=== PATIENT | female | born 1960 | race Caucasian/White ===

== ENCOUNTER → 2023-06-01 14:19 | Outpatient (REF) | payer BC, SELFPAY | LOC: WDC 14:19 | PROVIDERS: ATTENDING PHYSICIAN Obstetrics & Gynecology; FAMILY PHYSICIAN Physician Assistant Medical | DX: Z12.31 Encounter for screening mammogram for malignant neoplasm of breast (principal) | CPT/HCPCS: 77063; 77067 ==

== ENCOUNTER 2023-07-28 14:17 | Inpatient (IN) | payer BC, SELFPAY ==
[2023-07-28 11:29] VITALS: BP 155/88
[2023-07-28 11:58] VITALS: BMI 22.1
[2023-07-28 12:10] LABS: % Basophils 1.6 % (0-2); % Eosinophils 9.9 % (0-6); % Immature Granulocytes 0.2 % (0-0.5); % Lymphocytes 23.3 % (20.5-51.1); % Monocytes 8.7 % (1.7-9.3); % Neutrophils 56.3 % (42.2-75.2); Absolute Basophils 0.1 10^3/uL (0-0.2); Absolute Eosinophils 0.8 10^3/uL (0-0.7); Absolute Lymphocytes 1.9 10^3/uL (1.2-3.4); Absolute Monocytes 0.7 10^3/uL (0.1-0.6); Absolute Neutrophils 4.6 10^3/uL (1.4-6.5); Hematocrit 44.7 % (37.0-47.0); Hemoglobin 14.9 g/dL (12.0-16.0); Mean Corp Hgb Conc. 33.3 g/dL (33.0-37.0); Mean Corpuscular Volume 89.9 fL (81.0-99.0); Mean Platelet Volume 10.1 fL (7.4-10.4); Nucleated Red Blood Cells % 0 %; Platelet Count 281 10^3/uL (130-400); Red Blood Cell Count 4.97 10^6/uL (4.20-5.40); Red Cell Dist. Width 13.7 % (11.5-14.5); White Blood Cell Count 8.3 10^3/uL (4.8-10.8)
--- NOTE | 2023-07-28 12:16 | ED.GENMED ---
History of Present Illness
General
Chief Complaint: Breathing Problem
Time Seen by Provider: 07/28/23 12:08
Travel History
Have you had any contact with someone who has COVID-19?: No
Do you have any symptoms of coronavirus? Fever > 100 degrees, chills, cough, shortness of breath, sore throat, loss of taste or smell, muscle aches, or headache?: Yes
Symptoms:: SOB, cough
History of Present Illness
History of Present Illness:
62-year-old female with history of asthma presents to the emergency department for evaluation of persistent shortness of breath and wheezing for the past 10 days. Saw her scada technician (Dr Parker) today and was referred to the emergency department
due to hypoxia. She denies any fevers, night sweats. Does have some productive mucus with coughing. No chest pain. Profoundly short of breath with any degree of exertion. No leg swelling. No recent illnesses and no ill contacts at home.
Past History
Past History
ED Past Medical History: None
ED Past Surgical History: None
Social History
Tobacco: Non-smoker
Alcohol: None
Drug: None
Living: with family
Review of Systems
Review of Systems
Allergies reviewed?: Yes
All Other Systems: ROS reviewed and negative except as documented in HPI and ROS
Phy Exam
Physical Exam
Physical Exam:
GEN: Well appearing, NAD, WDWN
Eyes: PERRLA, EOMs intact, no scleral icterus
HENT: NCAT, oral mucosa moist
Lungs: Tachypnea, coarse expiratory wheezes and rhonchi in all rasheed with prolonged expiratory phase
Cardiac: RRR, no M/R/G, no peripheral edema. Radial pulses 2+ bilat
Neuro: AO x 3
MSK: No gross deformity or ecchymosis. No edema. No digital clubbing
Skin: No rashes, petechiae. Normal color, no pallor or jaundice.
Psych: Calm, cooperative, proper hygiene
Scores
Heart Failure Risk
Heart Failure Risk Score: Not Applicable
Course
Orders/Labs/Results
Orders:
Orders
07/28/23 Breakfast
Regular
At Your Request: Full Participation
07/28/23 12:02
Complete Blood Count/With Diff Urgent
Comprehensive Metabolic Panel Urgent
07/28/23 12:17
Albuterol Sulfate [Ventolin Nebules] 10 mg INH R NOW STA
Ipratropium Nebs [Atrovent Nebules] 1 mg INH R NOW STA
MethylPREDNISolone PF [Solu-Medrol Pf] 60 mg IV NOW STA
CR Chest - 2 Views Urgent
Comment:
Reason For Exam: SOB
07/28/23 14:00
Admit/Transfer Patient As Directed
Co-Sign Provider:
Level of Care: Inpatient admission
Assign to:: Telemetry
Physician / Group: nick alfred
Diagnosis: acute hypoxic respiratory failure
Reason for Telemetry: Other
Other Reason for Telemetry: acute hypoxia
Date to Stop Telemetry: 07/30/23
Time to Stop Telemetry: 11:00
Reason for Hospitalization: acute hypoxia
Expected length of stay greater than two midnights?: Yes
ELOS- Estimated Length of Stay in days: 3
I certify the patient meets the requirements for IP care: Yes
07/28/23 14:01
Code Status As Directed
Resuscitation Status: Full Code
07/28/23 15:28
COVID-19 Antigen Stat
Source: Nasal Swab
07/28/23 17:48
Acetaminophen [Tylenol] 650 mg PO Q4HPRN PRN
Ipratropium/Albuterol Sulfate [Duoneb] 3 ml INH R Q4HPRN PRN
Ipratropium/Albuterol Sulfate [Duoneb] 3 ml INH R QID
07/28/23 17:48
PULMONARY CONSULT Routine
Consulting Provider: Reilly Rosa
Was physician already notified: Yes
Respiratory Culture/Gram Stain Routine
ACOSTA Source: Sputum
Specimen Description:
Activity As Directed
Activity Level: As Tolerated
Intake/ Output As Directed
Frequency: Per unit guidelines
Vital Signs As Directed
Frequency: Per unit guidelines
Copd Education [RESP] Routine
O2 Therapy [RESP] Routine
Titrate/Wean O2 to maintain O2 sat greater than (%): 92
Special Instructions: adjust, if necessary, to avoid hyperoxia in CO2 retainers.
Use High Flow O2 if necessary
DX Deep Vein Thrombosis Video Routine
07/28/23 17:55
Artificial Tears (Pf) [Refresh Eye Drops (Pf)] 1 drops BOTH EYES QIDPRN PRN
07/28/23 18:00
Dexamethasone Sod Phosphate [Decadron] 4 mg IV Q6H
Enoxaparin Sodium [Lovenox] 40 mg SC QPM
Montelukast Sodium [Singulair] 10 mg PO QPM
07/28/23 20:00
Guaifenesin [Mucinex] 600 mg PO Q12
07/29/23 06:00
Basic Metabolic Panel IN AM
Complete Blood Count/With Diff IN AM
07/29/23 08:00
Famotidine [Pepcid] 20 mg PO DAILY
07/30/23 06:00
Basic Metabolic Panel IN AM
Complete Blood Count/With Diff IN AM
07/31/23 06:00
Basic Metabolic Panel IN AM
Complete Blood Count/With Diff IN AM
08/01/23 06:00
Basic Metabolic Panel IN AM
Complete Blood Count/With Diff IN AM
08/02/23 06:00
Basic Metabolic Panel IN AM
Complete Blood Count/With Diff IN AM
Abnormal Lab Results
07/28/23
12:02
Absolute Monos (auto) 0.7 H 10^3/uL
(0.1-0.6)
Absolute Eos (auto) 0.8 H 10^3/uL
(0-0.7)
Eosinophils % 9.9 H %
(0-6)
Glucose 102 H mg/dl
(70-99)
Alkaline Phosphatase 127 H U/L
(38-126)
07/28/23 12:02
07/28/23 12:02
Vital Signs
Initial and Last Documented VS:
Initial Vital Signs
Temp Pulse Resp BP Pulse Ox
98.3 F 98 20 155/88 89
07/28/23 11:29 07/28/23 11:29 07/28/23 11:29 07/28/23 11:29 07/28/23 11:29
Last Documented Vital Signs
Temp Pulse Resp BP Pulse Ox
98.6 F 100 18 120/76 93
07/28/23 17:55 07/28/23 17:55 07/28/23 17:55 07/28/23 17:55 07/28/23 18:15
MDM/Problems Addressed
MDM/Problems Addressed:
Patient's work of breathing and wheezing improved after hour-long neb however hypoxia remains. No evidence of infiltrate on chest x-ray and labs are reassuring. She has no fevers or chills worrisome for infectious etiology. Will admit to the
hospitalist service for further IV steroids and neb treatments
*Critical Care Note
Total Time (30-74mins, 75-104mins- exclusive of procedures): Not Applicable
ED Attending Note
-
Portions of this chart may have been created with voice recognition software.� Occasional wrong word or��sound alike� substitutions may have occurred due to the inherent limitations of voice recognition software.
Discharge Plan
Departure
Patient Disposition: Admit
Date of Disposition: 07/28/23
Time of Disposition: 13:43
Presentation/result/management discussed w/ accepting MD/DO: Hospitalist
Discharge Problem:
Asthma exacerbation, Acute hypoxemic respiratory failure
Interventions
Interventions:
*Risk Screen - Suicide Last Done: 07/28/23 11:58
*General Assessment Last Done: 07/28/23 11:29
*Neglect/Abuse Screening Last Done: 07/28/23 17:00
ED- Fall Risk Assessment Last Done: 07/28/23 11:59
*ED COVID-19 Vaccine History Last Done: 07/28/23 11:29
*Nursing Disposition Last Done: 07/28/23 18:15
ED- Cardiac Assessment Last Done: 07/28/23 11:59
ED- Pulmonary Assessment Last Done: 07/28/23 16:35
Discharge Date and Time
Discharge Date/Time: 07/28/23 18:40
[2023-07-28] MEDS: SOLU-MEDROL PF 60 MG IV (12:29)
[2023-07-28] MEDS: VENTOLIN NEBULES 10 MG INH (12:34)
[2023-07-28] MEDS: ATROVENT NEBULES 1 MG INH (12:34)
[2023-07-28 12:36] LABS: ALT (SGPT) 27 U/L (0-35); AST (SGOT) 30 U/L (14-36); Albumin 4.6 g/dl (3.5-5.0); Alkaline Phosphatase 127 U/L (38-126); Blood Urea Nitrogen 15 mg/dl (7-17); Calcium 9.5 mg/dl (8.4-10.2); Carbon Dioxide 24 mmol/L (22-30); Chloride 105 mmol/L (98-107); Estimated Creatinine Clearance 97 ml/min; Glucose 102 mg/dl (70-99); Potassium 4.5 mmol/L (3.5-5.1); Sodium 139 mmol/L (135-145); Total Bilirubin 0.8 mg/dl (0.2-1.3); Total Protein 7.6 g/dl (6.3-8.2); eGFR > 60.00
--- NOTE | 2023-07-28 13:45 | HPS.HSE ---
Family Physician
-
Family Physician: Ap Fofana PA-C
Chief Complaint
-
Short of breath, wheezing
History of Present Illness
62-year-old female with history of asthma presents to the emergency department for evaluation of persistent shortness of breath and wheezing for the past 10 days. Patient stated worsening short of breath with activity. She has cough with white
sputum. Patient also stated runny nose and congestion for past 6 weeks .she was treated with antibiotics for ear infection 6 weeks ago .patient denied any fever chills chest pain .patient denied any headache dizziness, syncopal episode .patient
denied abdominal pain, nausea, vomiting, diarrhea. Patient denied dysuria hematuria .patient was using nebulizer treatment with no relief in her symptoms .saw her automatic fancy machine operator (Dr Parker) today and was referred to the emergency department due to
hypoxia.
On arrival patient was hypoxic 80s to 90s on room air. Patient requiring 2 L of oxygen. Patient also received nebulizer, steroids in ER. Admitting for further management
Medical History
Past Medical History
Past Medical History: Reports Other
Additional Past Medical History:
GERD
IBS
Asthma
Laryngeal pharyngeal reflux
Past Surgical History: Reports Other
Additional Past Surgical History:
Spinal fusion
Sinus surgery
Social History
Tobacco: Non-smoker
Alcohol: Occasional
Drug: None
Personal:
Living: With Family
Employment: Employed
Family History
Family History: Not pertinent
Allergies / Home Medications
Allergies reflects when Allergies were last updated in [employer] [place].
Home Medications with original date entered in [employer] [place]
Allergy/Medication List:
Allergies
Allergy/AdvReac Type Severity Reaction Status Date / Time
Penicillins Allergy Rash Verified 07/28/23 11:32
Sulfa (Sulfonamide Allergy Rash Verified 07/28/23 11:32
Antibiotics)
SEASONAL Allergy CONGESTION, Uncoded 07/28/23 11:32
sneezing,
coughing
Home Medications
albuterol sulfate 2.5 mg/3 mL (0.083 %) solution for nebulization 2.5 mg (3 mL) inhalation R Q4HPRN PRN wheezing, cough ##60 04/12/21
budesonide 0.5 mg/2 mL suspension for nebulization 0.5 mg inhalation BID Lung/Breathing Issues 07/28/23
cetirizine 10 mg tablet (Zyrtec) 10 mg PO DAILY PRN ALLERGIES 07/28/23
dextran 70-hypromellose eye drops in a dropperette (Artificial Tears (PF) drops in a dropperette) 1 drp ophthalmic (eye) QIDPRN PRN dry eye 07/28/23
famotidine 20 mg tablet 20 mg PO DAILY Gastrointestinal Issue 07/28/23
fluticasone propionate 50 mcg/actuation nasal spray,suspension 1 spray intranasal BID PRN ALLERGIES 07/28/23
guaifenesin 600 mg tablet, extended release 12 hr (Mucinex) 1,200 mg PO Q12H PRN congestion 07/28/23
montelukast 10 mg tablet 10 mg PO QPM ASTHMA 07/28/23
Review of Systems
-
Constitutional: Reports No Symptoms
EENT: Reports Runny Nose
Respiratory: Reports Cough and Trouble Breathing
Cardiac: Reports No Symptoms
Abdomen/GI: Reports No Symptoms
: Reports No Symptoms
Musculoskeletal: Reports No Symptoms
Skin: Reports No Symptoms
Neurological: Reports No Symptoms
Endocrine: Reports No Symptoms
Hematologic/Lymphatic: Reports No Symptoms
Psych: Reports No Symptoms
Physical Exam
Vital Signs
Vital Signs
Temp Pulse Resp BP Pulse Ox
98.3 F 98 20 155/88 89
07/28/23 11:29 07/28/23 11:29 07/28/23 11:29 07/28/23 11:29 07/28/23 11:29
Physical Exam
General: Well Developed, Well Nourished and No Apparent Distress
HEENT: NormoCephalic, Moist mucous membranes and Atraumatic
Respiratory: Wheezes and Rhonchi
Cardiac: S1/S2 and Regular Rhythm; No Murmur or Rub
GI: Soft, Non Tender, Non Distended and Normal Bowel Sounds; No Organomegaly
Rectal: Deferred by Provider
Musculoskeletal: No Clubbing, No Cyanosis and No Edema
Skin: No Rash
Neuro: AO x 3 and Nonfocal/grossly intact
Psych: Calm
Laboratory Results
-
07/28/23 12:02
07/28/23 12:02
Laboratory Results
Total Bilirubin 0.8 mg/dl (0.2-1.3) 07/28/23 12:02
AST 30 U/L (14-36) 07/28/23 12:02
ALT 27 U/L (0-35) 07/28/23 12:02
Alkaline Phosphatase 127 U/L (38-126) H 07/28/23 12:02
Data Reviewed
-
Lab Data: Labs Reviewed by me
Impression/Plan
-
# Acute hypoxic respiratory failure likely from asthma exacerbation
-80s to low 90s on room air
-At present requiring supplemental oxygen
-Patient received nebulizer treatment and steroids in the ER
-Chest x-ray is clear
-Continue supplemental oxygen to keep sat greater than 92
-Wean oxygen as tolerated
-Decadron 4 Mg IV every 8 hours with
-Nebulizers as needed for short of breath and wheezing
# DVT prophylaxis
-Lovenox subcu
# CODE STATUS
-Full code
[2023-07-28 14:30] VITALS: BP 109/68
--- NOTE | 2023-07-28 14:30 | W.PN.UPDATE ---
Update Note
Progress Note Update
I saw and examined the patient.
The FARM MACHINERY ERECTOR or PA's note was reviewed and I agree with the note.
Comment: 62-year-old female presents with a chief complaint of shortness of breath.
155/88, 98, 20, 98.3 �F, 89% RA
NAD, awake and alert
Tachycardic, regular rhythm, normal S1-S2
Bilateral wheezes
Cranials 2-12 are intact
CXR: No acute cardiopulmonary process.
Lab Results
07/28/23
12:02
WBC 8.3
RBC 4.97
Hgb 14.9
Hct 44.7
MCV 89.9
MCH 30.0
MCHC 33.3
RDW 13.7
Plt Count 281
MPV 10.1
Abs Immat Gran (auto) 0.0
Absolute Neuts (auto) 4.6
Absolute Lymphs (auto) 1.9
Absolute Monos (auto) 0.7 H
Absolute Eos (auto) 0.8 H
Absolute Basos (auto) 0.1
Immature Gran % 0.2
Neutrophils % 56.3
Lymphocytes % 23.3
Monocytes % 8.7
Eosinophils % 9.9 H
Basophils % 1.6
Nucleated RBC % 0
Sodium 139
Potassium 4.5
Chloride 105
Carbon Dioxide 24
BUN 15
Creatinine 0.6
Estimated Creat Clear 97
eGFR > 60.00
Glucose 102 H
Calcium 9.5
Total Bilirubin 0.8
AST 30
ALT 27
Alkaline Phosphatase 127 H
Total Protein 7.6
Albumin 4.6
Acute asthma exacerbation:
-Support with supplemental oxygen
-IV Decadron DuoNebs
-Consult pulmonary
[2023-07-28 15:52] LABS: COVID-19 Antigen Negative (Negative)
[2023-07-28 17:55] VITALS: BP 120/76; BMI 23.4
[2023-07-28] MEDS: DUONEB INH (18:14)
[2023-07-28] MEDS: SINGULAIR 10 MG PO (18:18)
[2023-07-28] MEDS: DECADRON 4 MG IV ×2 (18:18→23:06)
[2023-07-28] MEDS: LOVENOX 40 MG SC (18:18)
[2023-07-28] MEDS: FLUSH (NSS) 2 FLUSH IV (18:18)
[2023-07-28 19:00] VITALS: BP 126/84
[2023-07-28] MEDS: DUONEB 3 ML INH (19:39)
[2023-07-28] MEDS: MUCINEX 600 MG PO (20:34)
[2023-07-28 23:57] VITALS: BP 116/73
[2023-07-29 03:33] VITALS: BP 113/74
[2023-07-29] MEDS: DECADRON 4 MG IV ×4 (05:22→23:20)
[2023-07-29 05:29] LABS: % Basophils 0.1 % (0-2); % Immature Granulocytes 0.6 % (0-0.5); % Lymphocytes 14.1 % (20.5-51.1); % Monocytes 2.5 % (1.7-9.3); % Neutrophils 82.7 % (42.2-75.2); Absolute Immature Granulocytes 0.1 10^3/uL (0-0.05); Absolute Lymphocytes 1.2 10^3/uL (1.2-3.4); Absolute Monocytes 0.2 10^3/uL (0.1-0.6); Absolute Neutrophils 7.1 10^3/uL (1.4-6.5); Hematocrit 40.1 % (37.0-47.0); Hemoglobin 13.8 g/dL (12.0-16.0); Mean Corp Hgb Conc. 34.4 g/dL (33.0-37.0); Mean Corpuscular Volume 87.2 fL (81.0-99.0); Mean Platelet Volume 10.5 fL (7.4-10.4); Nucleated Red Blood Cells % 0 %; Platelet Count 287 10^3/uL (130-400); Red Cell Dist. Width 13.6 % (11.5-14.5); White Blood Cell Count 8.6 10^3/uL (4.8-10.8)
[2023-07-29] MEDS: TYLENOL 650 MG PO ×2 (05:29→11:49)
[2023-07-29 06:06] LABS: Blood Urea Nitrogen 14 mg/dl (7-17); Calcium 9.6 mg/dl (8.4-10.2); Carbon Dioxide 22 mmol/L (22-30); Chloride 106 mmol/L (98-107); Estimated Creatinine Clearance 97 ml/min; Glucose 126 mg/dl (70-99); Potassium 4.7 mmol/L (3.5-5.1); Sodium 139 mmol/L (135-145); eGFR > 60.00
[2023-07-29 06:48] LABS: Hepatitis C Antibody Negative (Negative)
[2023-07-29] MEDS: DUONEB 3 ML INH ×4 (07:30→19:36)
[2023-07-29] MEDS: MUCINEX 600 MG PO ×2 (09:15→19:47)
[2023-07-29] MEDS: PEPCID 20 MG PO (09:15)
[2023-07-29] MEDS: FLUSH (NSS) 2 FLUSH IV (09:16)
[2023-07-29 09:19] VITALS: BP 115/72
--- NOTE | 2023-07-29 09:57 | CON.PUL ---
Consultation
Consultation Request
Date/Time Consultation Requested: 07/29/2023-8 AM
Date/Time Consultation Performed: 07/29/2023-8 AM
Requesting Provider: Hospitalist
Performing Provider: Dr. Rosa
Reason for Consultation: Asthma exacerbation
Medical History
-
Chief Complaint: Shortness of breath and wheezing
History of Present Illness:
62-year-old female with a history of persistent asthma with increasing wheezing over the last 10 days unresponsive to outpatient therapies sent to the emergency room from the pulmonary office and admitted-pulmonary consulted for asthma exacerbation
07/29/2023. She is feeling somewhat improved but continues to have wheezing, dyspnea exertion and offers no complaints of chest pain, chest tightness, pleurisy, chest congestion, productive cough, reflux, abdominal pain, nausea, leg weakness or
lower extremity edema.
Past Medical History
Past Medical History: None (Asthma-severe persistent. IBS. GERD. Laryngeal pharyngeal reflux. Colon polyps-benign. Mild mitral regurgitation. Spinal fusion 1978. Sinus surgery 1997.)
Social History
Tobacco: Non-smoker
Alcohol: Occasional
Drug: None
Personal:
Living: With Family
Occupational Exposures: No known asbestos exposure
Environmental Exposures: No known tuberculosis exposure
Family History
Family History: Reviewed & Not Pertinent
Allergies / Home Medications
Allergies
Allergy/AdvReac Type Severity Reaction Status Date / Time
Penicillins Allergy Rash Verified 07/28/23 11:32
Sulfa (Sulfonamide Allergy Rash Verified 07/28/23 11:32
Antibiotics)
SEASONAL Allergy CONGESTION, Uncoded 07/28/23 11:32
sneezing,
coughing
Home Medications
�Medication �Instructions �Recorded �Confirmed �Last Taken �Type
albuterol sulfate 2.5 mg/3 mL 2.5 mg (3 mL) inhalation R Q4HPRN 04/12/21 07/28/23 07/27/23 Rx
(0.083 %) solution for nebulization PRN wheezing, cough ##60
budesonide 0.5 mg/2 mL suspension 0.5 mg inhalation BID 07/28/23 07/28/23 07/27/23 History
for nebulization Lung/Breathing Issues
cetirizine 10 mg tablet (Zyrtec) 10 mg PO DAILY PRN ALLERGIES 07/28/23 07/28/23 07/27/23 History
dextran 70-hypromellose eye drops 1 drp ophthalmic (eye) QIDPRN PRN 07/28/23 07/28/23 07/27/23 History
in a dropperette (Artificial Tears dry eye
(PF) drops in a dropperette)
famotidine 20 mg tablet 20 mg PO DAILY Gastrointestinal 07/28/23 07/28/23 07/27/23 History
Issue
fluticasone propionate 50 1 spray intranasal BID PRN 07/28/23 07/28/23 07/27/23 History
mcg/actuation nasal ALLERGIES
spray,suspension
guaifenesin 600 mg tablet, 1,200 mg PO Q12H PRN congestion 07/28/23 07/28/23 07/27/23 History
extended release 12 hr (Mucinex)
montelukast 10 mg tablet 10 mg PO QPM ASTHMA 07/28/23 07/28/23 07/27/23 History
Review of Systems
-
Unable to Obtain full review of systems at this time due to: Other (Per HPI)
Vitals / Labs / Diagnostic Testing
Vital Signs
Temp Pulse Resp BP Pulse Ox
97.8 F 75 16 115/72 91
07/29/23 09:19 07/29/23 09:19 07/29/23 09:19 07/29/23 09:19 07/29/23 09:19
Lab Data
07/29/23 04:44
07/29/23 04:43
Diagnostic Testing:
Physical Exam
-
Exam:
Well-nourished and well-developed in no apparent distress
HEENT-atraumatic, normocephalic
Neck-supple, no JVD, no bruit
Heart-regular rate and rhythm-no murmurs, rubs or gallops
Chest with diminished breath sounds, prolonged expiratory time, expiratory wheezes and no crackles
Back without tenderness
Abdomen-soft, nontender, nondistended, no hepatosplenomegaly
Extremities-no cyanosis, clubbing, edema and good peripheral pulses
Integument-intact, no rashes, lesions or ecchymosis
Neurology-alert and oriented, nonfocal motor and sensory exam
Assessment
-
62-year-old female with a history of persistent asthma with increasing wheezing over the last 10 days unresponsive to outpatient therapies sent to the emergency room from the pulmonary office and admitted-pulmonary consulted for asthma exacerbation
07/29/2023.
Asthma-severe persistent with acute exacerbation
Allergic rhinitis
Eosinophilia-900 on 04/12/2021 and 800 on 07/28/2023
Mild hyperglycemia-blood sugar 126
Conditions present prior to admission:
Asthma-severe persistent.
IBS.
GERD.
Laryngeal pharyngeal reflux.
Colon polyps-benign.
Mild mitral regurgitation.
Idiopathic scoliosis
Spinal fusion 1978. Sinus surgery 1997.
Plan
Patient admitted with severe asthma exacerbation
Continue to closely monitor for progression of severe exacerbation-
Respiratory rate >30
Tachycardia >120
accessary muscle use
Inability to speak full sentences
Inability be supine
Pulsus paradox, etc.
Consider monitoring PEF
Obtain ABG if necessary to assess for hypercapnia
Supplemental oxygen as needed
High flow oxygen if needed
BiPAP/NIV if necessary
Inhaled beta agonist
Inhaled muscarinic antagonist
Systemic steroids-Decadron IV 4 mg every 6 hours
Consider adding magnesium sulfate 2 g IV over 20 minutes if does not improve
Extreme cases consider IV ketamine-would need ICU-appears we will be able to avoid this
Consider Heliox 70/30 or 80/20-also only if deteriorates
Eventually obtain allergy testing, IgE level, eosinophils, etc.
Eosinophil levels consistently elevated
Consider Biologics such as Xolair -anti-IgE, Nucala-IL-5 inhibitor, Lpitoqc-OV-9 inhibitor, or Dupixent-I L4/13 inhibitor or Tezspire-this is being considered by Dr. Parker as an outpatient
DVT prophylaxis-on Lovenox
Nutrition
Early mobilization
Critical care statement: A total of 45 minutes of critical care time was provided for this patient today. This includes management of unstable vital signs, evaluation of the patient at bedside, management of respiratory failure/BiPAP/noninvasive
ventilation, reviewing the patient's pertinent medical records including radiographs, microbiology, laboratory evaluations, and discussion with primary team, consultants, pharmacy, case management, charge nurse, critical care nursing, and
respiratory therapy.
Patient last saw Dr. Parker 07/28/2023-recommend outpatient follow-up in the next 2 weeks-consideration towards Biologics such as Dupixent
Diagnostic data:
Chest x-ray/11/19-NAD
Chest x-ray 07/28/2023-NAD
Echocardiogram 12/08/2020-EF 55-60%, no valvular disease
Spirometry 05/18/2023-FEV1 1.85-64%, FVC 2.46-66%
FeNO 03/10/2023-73 ppb
Data Reviewed
-
PFT: Report reviewed by me
EKG: Report reviewed by me
Radiology: Report reviewed by me
Medical Tests (Nuc Med, Echo etc): Report reviewed by me
Labs: Labs reviewed by me
Old Records: Reviewed
Total Time Spent with Patient (in minutes): 65
--- NOTE | 2023-07-29 11:17 | W.PN.HOSP.TC ---
Today's Communication/Plan
-
see plan
Assessment / Plan
Assessment / Plan
Gen: NAD, AAOx3.
Eyes: EOMI, PERRLA, no scleral icterus.
Neck: supple.
CV: RRR, +S1/S2, no m/r/g.
Resp: inspiratory wheezes
Abd: +BS, soft, NT, ND
Skin: No rashes.
Neuro: CN 2-12 intact, non-focal.
Psych: Normal mood and affect.
CXR: No acute cardiopulmonary process.
Acute asthma exacerbation:
-Support with supplemental oxygen (currently on 3L NC O2)
-cont IV Decadron
-cont Singulair/DuoNebs/Mucinex
-Consult pulmonary
FULL/Lovenox
Anticipated Discharge: 24 - 48 hours
Subjective/Interval History
-
Date of Service: July 29, 2023
SOB improving. Continues with cough.
Objective Data
-
Labs:
Laboratory Results
07/29/23 07/29/23
04:43 04:44
WBC 8.6
Hgb 13.8
Hct 40.1
Plt Count 287
Sodium 139
Potassium 4.7
Chloride 106
Carbon Dioxide 22
BUN 14
Creatinine 0.5 L
Glucose 126 H
Calcium 9.6
Vital Signs:
Vital Signs
Temp Pulse Resp BP Pulse Ox
97.8 F 91 18 115/72 94
07/29/23 09:19 07/29/23 11:06 07/29/23 11:06 07/29/23 09:19 07/29/23 11:06
I&O
07/28/23 07/29/23 07/30/23
06:59 06:59 06:59
Intake Total 1440 / 1440
Output Total 0 / 0
Balance 1440 / 1440
[2023-07-29 11:51] VITALS: BP 114/80
--- NOTE | 2023-07-29 12:00 | PTCARENOTE ---
Pt up in the bathroom and coughing. Pt's HR in the 140s with coughing, asymptomatic. HR back down to 80s-90s at rest, in sinus rhythm. Dr. Christina hutchison.
[2023-07-29 16:40] VITALS: BP 114/71
[2023-07-29] MEDS: LOVENOX 40 MG SC (17:55)
[2023-07-29] MEDS: SINGULAIR 10 MG PO (17:55)
--- NOTE | 2023-07-29 19:03 | CM ---
Angelic was admitted via ED with severe asthma. She is typically (I) amb and adl's, but SOB at present despite nebulizer and O2.
Plan is for discharge to home with when medically ready.
CM to watch for home O2 and other needs identified during the hospitalization.
[2023-07-29 23:00] VITALS: BP 115/73
[2023-07-30] MEDS: DECADRON 4 MG IV ×4 (06:17→23:26)
[2023-07-30 07:25] VITALS: BP 116/76
[2023-07-30] MEDS: DUONEB 3 ML INH ×4 (07:26→19:29)
[2023-07-30 08:59] LABS: % Basophils 0.1 % (0-2); % Immature Granulocytes 0.5 % (0-0.5); % Lymphocytes 9.6 % (20.5-51.1); % Monocytes 3.3 % (1.7-9.3); % Neutrophils 86.5 % (42.2-75.2); Absolute Immature Granulocytes 0.1 10^3/uL (0-0.05); Absolute Lymphocytes 1.5 10^3/uL (1.2-3.4); Absolute Monocytes 0.5 10^3/uL (0.1-0.6); Absolute Neutrophils 13.5 10^3/uL (1.4-6.5); Hematocrit 39.1 % (37.0-47.0); Hemoglobin 13.5 g/dL (12.0-16.0); Mean Corp Hgb Conc. 34.5 g/dL (33.0-37.0); Mean Corpuscular Volume 86.9 fL (81.0-99.0); Mean Platelet Volume 10.8 fL (7.4-10.4); Nucleated Red Blood Cells % 0 %; Platelet Count 304 10^3/uL (130-400); White Blood Cell Count 15.6 10^3/uL (4.8-10.8)
[2023-07-30 09:04] LABS: Blood Urea Nitrogen 22 mg/dl (7-17); Calcium 9.6 mg/dl (8.4-10.2); Carbon Dioxide 21 mmol/L (22-30); Chloride 107 mmol/L (98-107); Estimated Creatinine Clearance 97 ml/min; Glucose 114 mg/dl (70-99); Potassium 4.5 mmol/L (3.5-5.1); Sodium 137 mmol/L (135-145); eGFR > 60.00
[2023-07-30] MEDS: MUCINEX 600 MG PO ×2 (09:37→20:04)
[2023-07-30] MEDS: PEPCID 20 MG PO (09:37)
[2023-07-30] MEDS: FLUSH (NSS) 1 FLUSH IV (09:38)
--- NOTE | 2023-07-30 10:53 | W.PN.HOSP.TC ---
Today's Communication/Plan
-
see bold
Assessment / Plan
Assessment / Plan
Gen: NAD, AAOx3.
Eyes: EOMI, PERRLA, no scleral icterus.
Neck: supple.
CV: remains RRR, +S1/S2, no m/r/g.
Resp: CTAB
Abd: remains +BS, soft, NT, ND
Skin: No rashes.
Neuro: CN 2-12 intact, non-focal.
Psych: Normal mood and affect.
CXR: No acute cardiopulmonary process.
Acute asthma exacerbation:
-Support with supplemental oxygen (currently on 2L NC O2)
-cont IV Decadron
-cont Singulair/DuoNebs/Mucinex
-pulmonary following
FULL/Lovenox
Anticipated Discharge: Within 24 hours
Subjective/Interval History
-
Date of Service: July 30, 2023
No new complaints.
Objective Data
-
Labs:
Laboratory Results
07/30/23
08:00
WBC 15.6 H
Hgb 13.5
Hct 39.1
Plt Count 304
Sodium 137
Potassium 4.5
Chloride 107
Carbon Dioxide 21 L
BUN 22 H
Creatinine 0.5 L
Glucose 114 H
Calcium 9.6
Vital Signs:
Vital Signs
Temp Pulse Resp BP Pulse Ox
98.2 F 67 18 116/76 93
07/30/23 07:25 07/30/23 07:25 07/30/23 07:25 07/30/23 07:25 07/30/23 09:33
I&O
07/29/23 07/30/23 07/31/23
06:59 06:59 06:59
Intake Total 1440 / 1440 660 / 660
Output Total 0 / 0
Balance 1440 / 1440 / 660
[2023-07-30 15:30] VITALS: O2SAT 86; O2SAT 92
--- NOTE | 2023-07-30 15:34 | PTCARENOTE ---
Pt's SpO2 92% on RA at rest. Pt ambulated 40-[address], SPO2 dropped to 86% on RA with ambulation. Pt reports slight GONZALES with ambulation. Once pt back sitting in bed, SPO2 up to 92-93% on RA within a couple of seconds, will monitor.
[2023-07-30 15:59] VITALS: BP 123/71
--- NOTE | 2023-07-30 17:49 | W.PN.PUL3 ---
Today's Communication / Plan
-
Continue nebulizers
IV corticosteroids without change
Wean off oxygen as able oxygen has been weaned off
Increase activity as able
Assessment
-
62-year-old female with a history of persistent asthma with increasing wheezing over the last 10 days unresponsive to outpatient therapies sent to the emergency room from the pulmonary office and admitted-pulmonary consulted for asthma exacerbation
07/29/2023.
Asthma-severe persistent with acute exacerbation
Allergic rhinitis
Eosinophilia-900 on 04/12/2021 and 800 on 07/28/2023
Mild hyperglycemia-blood sugar 126
Conditions present prior to admission:
Asthma-severe persistent.
IBS.
GERD.
Laryngeal pharyngeal reflux.
Colon polyps-benign.
Mild mitral regurgitation.
Idiopathic scoliosis
Spinal fusion 1978. Sinus surgery 1997.
Plan
Patient admitted with severe asthma exacerbation
Chest x-ray on admission with hyper inflation.
Respiratory rate >30
Tachycardia >120
accessary muscle use
Inability to speak full sentences
Inability be supine
Pulsus paradox, etc.
Patient states that she is slowly improving objectively and subjectively.
Continue low rate supplemental oxygen, decrease-As able to maintain pulse ox above 90%
-
Continue albuterol/ipratropium [id number].
Systemic steroids-Decadron IV 4 mg every 6 hours-continue without change for today.
-
Eosinophil levels consistently elevated
Prior IgE and sensitivity have been negative in the past.
Despite maximal medical therapy continues to have recurrent exacerbations requiring prednisone.
Patient has significant sinus problems and follows up with ENT as well
Process to approve Dupixent has been a started in the outpatient setting. By Dr. Parker.
DVT prophylaxis-on Lovenox
Patient last saw Dr. Parker 07/28/2023-recommend outpatient follow-up in the next 2 weeks-consideration towards Biologics such as Dupixent

Diagnostic data:
Chest x-ray/11/19-NAD
Chest x-ray 07/28/2023-NAD
Echocardiogram 12/08/2020-EF 55-60%, no valvular disease
Spirometry 05/18/2023-FEV1 1.85-64%, FVC 2.46-66%
FeNO 03/10/2023-73 ppb
Subjective Data
-
Date of Service:
Date of Service: July 30, 2023
Chief Complaint: Pulmonary Follow Up (Acute asthma exacerbation-severe)
Objective Data
Data Reviewed
Vital Signs / I&O / Oxygen:
Vital Signs
Temp Pulse Resp BP Pulse Ox
97.0 F 76 18 123/71 91
07/30/23 15:59 07/30/23 15:59 07/30/23 15:59 07/30/23 15:59 07/30/23 15:59
Intake and Output
07/29/23 07/30/23 07/31/23
06:59 06:59 06:59
Intake Total 1440 / 1440 660 / 660
Output Total 0 / 0
Balance 1440 / 1440 660 / 660
SaO2 91
Nasal Cannula flow liters per 2
minute
Physical Exam
General: Respiratory Distress (n), Comfortable and Other (Now able to speak in full sentences.)
HEENT: Normocephalic
Cardiovascular: S1-S2
Respiratory: Wheeze (Minimal expiratory, significantly improved.) and Other (Better air movement)
GI: Soft and Non Distended
Neurology: Awake, Oriented, AO x 3 and No Motor Deficits
Labs/Micro/Reports
Lab Data
07/30/23 08:00
07/30/23 08:00
[2023-07-30] MEDS: LOVENOX 40 MG SC (18:52)
[2023-07-30] MEDS: SINGULAIR 10 MG PO (18:52)
[2023-07-30] MEDS: BENADRYL 25 MG PO (23:23)
[2023-07-30 23:47] VITALS: BP 107/72
[2023-07-31] MEDS: DECADRON 4 MG IV ×3 (06:06→20:22)
[2023-07-31 06:53] LABS: % Immature Granulocytes 0.4 % (0-0.5); % Monocytes 4.8 % (1.7-9.3); % Neutrophils 83.8 % (42.2-75.2); Absolute Lymphocytes 1.2 10^3/uL (1.2-3.4); Absolute Monocytes 0.5 10^3/uL (0.1-0.6); Absolute Neutrophils 9.3 10^3/uL (1.4-6.5); Hematocrit 37.7 % (37.0-47.0); Hemoglobin 12.8 g/dL (12.0-16.0); Mean Corpuscular Hgb 30.5 pg (27.0-31.0); Mean Corpuscular Volume 89.8 fL (81.0-99.0); Mean Platelet Volume 10.7 fL (7.4-10.4); Nucleated Red Blood Cells % 0 %; Platelet Count 269 10^3/uL (130-400); White Blood Cell Count 11.1 10^3/uL (4.8-10.8)
[2023-07-31 07:03] LABS: Blood Urea Nitrogen 20 mg/dl (7-17); Calcium 9.3 mg/dl (8.4-10.2); Carbon Dioxide 21 mmol/L (22-30); Chloride 108 mmol/L (98-107); Estimated Creatinine Clearance 97 ml/min; Glucose 110 mg/dl (70-99); Potassium 4.8 mmol/L (3.5-5.1); Sodium 137 mmol/L (135-145); eGFR > 60.00
[2023-07-31] MEDS: DUONEB 3 ML INH ×4 (07:23→19:33)
[2023-07-31 07:44] VITALS: BP 124/81
[2023-07-31] MEDS: MUCINEX 600 MG PO ×2 (07:55→20:22)
[2023-07-31] MEDS: PEPCID 20 MG PO (07:55)
[2023-07-31 08:00] VITALS: O2SAT 91
--- NOTE | 2023-07-31 08:48 | W.PN.HOSP.TC ---
Today's Communication/Plan
-
possible d/c later today
Assessment / Plan
Assessment / Plan
Gen: NAD, AAOx3.
Eyes: EOMI, PERRLA, no scleral icterus.
Neck: supple.
CV: remains RRR, +S1/S2, no m/r/g.
Resp: CTAB
Abd: remains +BS, soft, NT, ND
Skin: No rashes.
Neuro: CN 2-12 intact, non-focal.
Psych: Normal mood and affect.
CXR: No acute cardiopulmonary process.
Acute asthma exacerbation:
-now weaned to RA
-cont IV Decadron
-cont Singulair/DuoNebs/Mucinex
-pulmonary following
FULL/Lovenox
Anticipated Discharge: Within 24 hours
Subjective/Interval History
-
Date of Service: July 31, 2023
No new complaints.
Objective Data
-
Labs:
Laboratory Results
07/31/23
06:12
WBC 11.1 H
Hgb 12.8
Hct 37.7
Plt Count 269
Sodium 137
Potassium 4.8
Chloride 108 H
Carbon Dioxide 21 L
BUN 20 H
Creatinine 0.5 L
Glucose 110 H
Calcium 9.3
Vital Signs:
Vital Signs
Temp Pulse Resp BP Pulse Ox
97.9 F 89 16 107/72 92
07/30/23 23:47 07/31/23 07:27 07/31/23 07:27 07/30/23 23:47 07/31/23 07:27
I&O
07/30/23 07/31/23 08/01/23
06:59 06:59 06:59
Intake Total 660 / 660 2250 / 2250
Balance 660 / 660 2250 / 2250
--- NOTE | 2023-07-31 15:20 | W.PN.PUL3 ---
Today's Communication / Plan
-
Decrease dexamethasone, hopefully prednisone tomorrow.
Continue nebulizer therapy while in the hospital
Restart Symbicort upon discharge
Hopefully discharge tomorrow
Assessment
-
62-year-old female with a history of persistent asthma with increasing wheezing over the last 10 days unresponsive to outpatient therapies sent to the emergency room from the pulmonary office and admitted-pulmonary consulted for asthma exacerbation
07/29/2023.
Asthma-severe persistent with acute exacerbation
Allergic rhinitis
Eosinophilia-900 on 04/12/2021 and 800 on 07/28/2023
Mild hyperglycemia-blood sugar 126
Conditions present prior to admission:
Asthma-severe persistent.
IBS.
GERD.
Laryngeal pharyngeal reflux.
Colon polyps-benign.
Mild mitral regurgitation.
Idiopathic scoliosis
Spinal fusion 1978. Sinus surgery 1997.
Plan
Patient admitted with severe asthma exacerbation-sent from Dr. Parker office.
-
Improving subjectively and objectively.
Ambulated oxygen down to 89% only.
Oxygen will be weaned off
-
Continue albuterol/ipratropium [id number]. While in the hospital
Decrease dexamethasone to 4 mg IV every 8 hours. Hopefully can transition to prednisone 40 mg daily with a slow taper going forward.
Restarted Symbicort-was taking in the outpatient setting.
Continue singular
-
Eosinophil levels consistently elevated-patient has history of eosinophilic asthma.
Prior IgE and sensitivity have been negative in the past.
Despite maximal medical therapy continues to have recurrent exacerbations requiring prednisone.
Patient has significant sinus problems and follows up with ENT as well
Process to approve Dupixent has been a started in the outpatient setting. By Dr. Parker.
DVT prophylaxis-on Lovenox
Patient last saw Dr. Parker 07/28/2023-recommend outpatient follow-up in the next 2 weeks.
-
Hopefully can be discharged in the next 24 hours if continues to improve

Diagnostic data:
Chest x-ray/11/19-NAD
Chest x-ray 07/28/2023-NAD
Echocardiogram 12/08/2020-EF 55-60%, no valvular disease
Spirometry 05/18/2023-FEV1 1.85-64%, FVC 2.46-66%
FeNO 03/10/2023-73 ppb
Subjective Data
-
Date of Service:
Date of Service: July 31, 2023
Chief Complaint: Pulmonary Follow Up (Acute asthma exacerbation-severe)
Subjective:
Overall subjectively feeling better
Less short of breath with ambulation
Less tachycardic
No significant phlegm production
Review of Systems
GI: Abdominal Pain (n) and Nausea (n)
Neuro: Headache (n)
Objective Data
Data Reviewed
Vital Signs / I&O / Oxygen:
Vital Signs
Temp Pulse Resp BP Pulse Ox
97.9 F 90 16 124/81 90
07/31/23 07:44 07/31/23 11:23 07/31/23 11:23 07/31/23 07:44 07/31/23 11:23
Intake and Output
07/30/23 07/31/23 08/01/23
06:59 06:59 06:59
Intake Total 660 / 660 2250 / 2250
Balance 660 / 660 2250 / 2250
SaO2 90
Nasal Cannula flow liters per 2
minute
Physical Exam
General: Respiratory Distress (n), Comfortable and Other (Now able to speak in full sentences.)
HEENT: Normocephalic
Cardiovascular: S1-S2
Respiratory: Wheeze (None-improved), Non-Labored Respirations and Other (Good air movement)
GI: Soft and Non Distended
Neurology: Awake, Oriented, AO x 3 and No Motor Deficits
Labs/Micro/Reports
Lab Data
07/31/23 06:12
07/31/23 06:12
[2023-07-31 15:59] VITALS: BP 125/82
[2023-07-31] MEDS: LOVENOX 40 MG SC (17:12)
[2023-07-31] MEDS: SINGULAIR 10 MG PO (17:12)
[2023-07-31] MEDS: SYMBICORT 160/4.5 MCG INHALER 2 PUFF INH (19:33)
[2023-07-31 23:00] VITALS: BP 104/70
[2023-08-01] MEDS: DECADRON 4 MG IV (04:05)
[2023-08-01 07:25] VITALS: BP 116/79
[2023-08-01 07:26] LABS: % Basophils 0.1 % (0-2); % Immature Granulocytes 0.6 % (0-0.5); % Lymphocytes 11.6 % (20.5-51.1); % Monocytes 4.7 % (1.7-9.3); Absolute Immature Granulocytes 0.1 10^3/uL (0-0.05); Absolute Lymphocytes 1.2 10^3/uL (1.2-3.4); Absolute Monocytes 0.5 10^3/uL (0.1-0.6); Absolute Neutrophils 8.3 10^3/uL (1.4-6.5); Hematocrit 40.6 % (37.0-47.0); Hemoglobin 13.6 g/dL (12.0-16.0); Mean Corp Hgb Conc. 33.5 g/dL (33.0-37.0); Mean Corpuscular Hgb 30.1 pg (27.0-31.0); Mean Corpuscular Volume 89.8 fL (81.0-99.0); Mean Platelet Volume 10.5 fL (7.4-10.4); Nucleated Red Blood Cells % 0 %; Platelet Count 301 10^3/uL (130-400); Red Blood Cell Count 4.52 10^6/uL (4.20-5.40); Red Cell Dist. Width 13.7 % (11.5-14.5); White Blood Cell Count 10.1 10^3/uL (4.8-10.8)
[2023-08-01 07:37] LABS: Blood Urea Nitrogen 24 mg/dl (7-17); Calcium 9.5 mg/dl (8.4-10.2); Carbon Dioxide 22 mmol/L (22-30); Chloride 105 mmol/L (98-107); Estimated Creatinine Clearance 97 ml/min; Glucose 103 mg/dl (70-99); Potassium 4.5 mmol/L (3.5-5.1); Sodium 138 mmol/L (135-145); eGFR > 60.00
[2023-08-01] MEDS: PEPCID 20 MG PO (07:56)
[2023-08-01] MEDS: MUCINEX 600 MG PO (07:56)
[2023-08-01] MEDS: DUONEB 3 ML INH ×2 (08:13→11:21)
[2023-08-01] MEDS: SYMBICORT 160/4.5 MCG INHALER 2 PUFF INH (08:13)
[2023-08-01 09:04] VITALS: BP 116/79
--- NOTE | 2023-08-01 10:12 | W.PN.PUL.V3 ---
Today's Communication / Plan
-
Wean oxygen
Check rest and exercise oximetry
Increase activity
Prednisone with slow taper
Outpatient pulmonary follow-up
Assessment
-
62-year-old female with a history of persistent asthma with increasing wheezing over the last 10 days unresponsive to outpatient therapies sent to the emergency room from the pulmonary office and admitted-pulmonary consulted for asthma exacerbation
07/29/2023.
Asthma-severe persistent with acute exacerbation
Allergic rhinitis
Eosinophilia-900 on 04/12/2021 and 800 on 07/28/2023
Mild hyperglycemia-blood sugar 126
Conditions present prior to admission:
Asthma-severe persistent.
IBS.
GERD.
Laryngeal pharyngeal reflux.
Colon polyps-benign.
Mild mitral regurgitation.
Idiopathic scoliosis
Spinal fusion 1978. Sinus surgery 1997.
Plan
Patient admitted with severe asthma exacerbation-sent from Dr. Parker office.
Respiratory status continues to improve
Check rest and exercise oximetry prior to discharge
Incentive spirometry
Symbicort
Change Decadron to prednisone 40 mg with slow taper
Continue nebulizers while in the hospital
Continue Singulair
Eosinophil levels consistently elevated-patient has history of eosinophilic asthma.
Prior IgE and hypersensitivity have been negative in the past.
Despite maximal medical therapy continues to have recurrent exacerbations requiring prednisone.
Patient has significant sinus problems and follows up with ENT as well
Process to approve Dupixent has been a started in the outpatient setting. By Dr. Parker.
DVT prophylaxis-on Lovenox
Patient last saw Dr. Parker 07/28/2023-recommend outpatient follow-up in the next 2 weeks.

Diagnostic data:
Chest x-ray/11/19-NAD
Chest x-ray 07/28/2023-NAD
Echocardiogram 12/08/2020-EF 55-60%, no valvular disease
Spirometry 05/18/2023-FEV1 1.85-64%, FVC 2.46-66%
FeNO 03/10/2023-73 ppb
Subjective Data
-
Date of Service:
Date of Service: August 01, 2023
Chief Complaint: Pulmonary Follow Up (Acute asthma exacerbation-severe) and Dyspnea Follow Up
Subjective:
Overall feels better, still has some dyspnea on exertion, wheezing improved, weaning oxygen, no chest pain or abdominal pain
Review of Systems
General: Other (Per HPI)
Objective Data
Data Reviewed
Vital Signs / I&O:
Vital Signs
Temp Pulse Resp BP Pulse Ox
98.3 F 64 16 116/79 92
08/01/23 07:25 08/01/23 08:15 08/01/23 08:15 08/01/23 07:25 08/01/23 08:15
Intake and Output
07/31/23 08/01/23 08/02/23
06:59 06:59 06:59
Intake Total 2250 / 2250 2100 / 2100 480 / 480
Balance 2250 / 2250 2100 / 2100 480 / 480
SaO2: 92
Nasal Cannula flow liters per minute: 2
Physical Exam
General: Respiratory Distress (n), Comfortable and Other (Now able to speak in full sentences.)
HEENT: Normocephalic
Cardiovascular: Regular Rhythm
Respiratory: Wheeze (Forced end expiratory), Non-Labored Respirations, Accessory Resp Muscle Use (n), Stridor (n) and Other (Good air movement)
GI: Soft and Non Distended
Neurology: Awake, Oriented, AO x 3 and No Motor Deficits
Skin: Warm, Good Color, Cyanosis (n), Jaundice (n) and Rash (n)
Labs/Micro/Reports
Lab Data
08/01/23 06:50
08/01/23 06:50
--- NOTE | 2023-08-01 11:55 | W.PN.HOSP.TC ---
Addendum entered and electronically signed by Nestor Rizo MD 08/03/23 14:04:
Acute hypoxic respiratory insufficiency
Original Note:
Today's Communication/Plan
-
po steroid taper
check pulse rest/ambulation per pulm prior to dc today
96% on RA earlier
Assessment / Plan
Assessment / Plan
Gen: NAD, AAOx3.
Eyes: EOMI, PERRLA, no scleral icterus.
Neck: supple.
CV: remains RRR, +S1/S2, no m/r/g.
Resp: CTAB
Abd: remains +BS, soft, NT, ND
Skin: No rashes.
Neuro: CN 2-12 intact, non-focal.
Psych: Normal mood and affect.
CXR: No acute cardiopulmonary process.
Acute severe persistent asthma exacerbation:
-now weaned to RA
-cont IV Decadron with slow prednisone taper
-cont Singulair/DuoNebs/Mucinex
-OP f/u for eosinophilic asthma
-Check resting and ambulatory pulse ox per pulmonary. Did well prior. O2 sat stable overall.
-pulmonary following
IBS/GERD
-cont pepcid
FULL/Lovenox
More than 30 minutes spent in discharge including
Final examination of the patient
Summarizing hospital stay
Instructions for continuing care to all relevant caregivers
Preparation of discharge records, prescriptions, and referral forms
Total time spent (in minutes): 45
Anticipated Discharge: Today
Subjective/Interval History
-
Date of Service: August 01, 2023
on room air
wants to walk around
Objective Data
-
Labs:
Laboratory Results
08/01/23
06:50
WBC 10.1
Hgb 13.6
Hct 40.6
Plt Count 301
Sodium 138
Potassium 4.5
Chloride 105
Carbon Dioxide 22
BUN 24 H
Creatinine 0.6
Glucose 103 H
Calcium 9.5
Vital Signs:
Vital Signs
Temp Pulse Resp BP Pulse Ox
98.3 F 100 16 116/79 94
08/01/23 07:25 08/01/23 11:23 08/01/23 11:23 08/01/23 07:25 08/01/23 11:23
I&O
07/31/23 08/01/23 08/02/23
06:59 06:59 06:59
Intake Total 2250 / 2250 2099 / 2099 480 / 480
Balance 2250 / 2250 2099 / 2099 480 / 480
[2023-08-01] MEDS: DELTASONE 40 MG PO (13:01)
--- NOTE | 2023-08-01 13:09 | CM ---
Angelic is ready for discharge today; she is 96% on room air, however she is waiting to have a walking O2 test to determine if she will need oxygen at home. Angelic is ambulatory in the room and will return home with her at discharge. Await
results of walking pulse ox.
[2023-08-01 14:00] VITALS: BP 116/77
--- NOTE | 2023-08-01 14:25 | W.DCSUMMARY ---
Discharge Summary
Discharge Data
Date of Admission: 07/28/23
Date of Discharge: 08/01/23
-
Pending Results: No
Hospital Course
62-year-old female past medical history of allergic rhinitis, eosinophilia, asthma who is presenting from pulmonary office after seeing her primary rehab therapy manager for shortness of breath. Patient was found to be in asthma exacerbation. Patient was
started on IV Decadron. Bronchodilators were started. Pulmonary was consulted. Patient symptomology slowly started to improve. Patient was stable on room air. Patient was assessed for home oxygenation needs for multiple days and she did not
qualify. Patient breathing significantly improved. Patient will be transition to slow prednisone taper regimen on discharge with outpatient pulmonary follow-up.
Discharge Plan
-
Patient Disposition: Home (Routine Discharge)
Discharge Diagnosis/Procedures: Acute severe persistent asthma exacerbation
Condition: Fair
Diet: As tolerated
Activity: With assistance and As tolerated
Driving Restrictions: As prior to admission
Referrals:
Marco Antonio Truong MD [Active] - in one to two weeks
(Or nurse practitioner
Eventually needs full PFTs, allergy workup, and consideration towards Biologics)
Ap Fofana PA-C [Family Provider] - in less than 1 week
Prescriptions:
New
prednisone 10 mg Tablet
See Rx Instructions .ROUTE .COMPLEX Qty: 30 0RF
Rx Instructions:
Take By Mouth:
40 mg daily x3 days, 30 mg daily x3 days,
20 mg daily x3 days, 10 mg daily x3 days.
Continued
albuterol sulfate 2.5 MG/3 ML solution for nebulization
2.5 mg inhalation R Q4HPRN PRN (Reason: wheezing, cough) Qty: 60 0RF
cetirizine [Zyrtec] 10 mg Tablet
10 mg PO DAILY PRN (Reason: ALLERGIES)
famotidine 20 mg tablet
20 mg PO DAILY
budesonide 0.5 mg/2 mL Suspension For Nebulization
0.5 mg INHALATION BID
montelukast 10 mg tablet
10 mg PO QPM
fluticasone propionate 50 mcg/actuation [place],Suspension
1 spray INTRANASAL BID PRN (Reason: ALLERGIES)
Artificial Tears (PF) Dropperette
1 drp OPHTHALMIC (EYE) QIDPRN PRN (Reason: dry eye)
guaifenesin [Mucinex] 600 mg Tablet Extended Release 12hr
1,200 mg PO Q12H PRN (Reason: congestion)
Discharge Orders:
Discharge Patient (As Directed); Ordered 08/01/23
Ordered By: Nestor Rizo
Discharge Date and Time
Print Language: PRYDEINIG
--- NOTE | 2023-08-02 09:03 | PN.CDI ---
CDI
- -
CDI:
Physician Documentation Request
Admit Date: 07/28/23 14:17
Dear Doctor Sallie,
Please review the following and provide your response in the progress notes.
Clinical Indicators:
The diagnosis of acute hypoxic respiratory failure was documented on 07/27 H&P but is not consistently noted in subsequent documentation.
- 07/27 H&P 'Acute hypoxic respiratory failure likely from asthma exacerbation'
- '80s to low 90s on room air'
- Documented 76% on room air, 89% on 4L O2, 93% on 4L
Please clarify the following:
____ - Acute hypoxic respiratory failure was present on admission and is now resolved.
____ - Acute hypoxic respiratory failure was ruled out
____ - Other
Use of terms such as suspected, likely, concern for, or probable (associated with a specific diagnosis that is being evaluated, monitored, or treated as if it exists) are acceptable and can be coded in the inpatient setting, when documented at the
time of discharge.
Thank you,
Davey Gabriel RN
CDI Specialist
Please use your independent medical judgment in providing your response.
== END 2023-08-01 14:59 | disposition home or self-care (01) | DRG 203 ==
LOC: 4 EAST ACU 14:17
PROVIDERS: Registered Nurse; ADMITTING PHYSICIAN Internal Medicine; ATTENDING PHYSICIAN Hospitalist; CONSULT PHYSICIAN Internal Medicine Critical Care Medicine; EMERGENCY PHYSICIAN Emergency Medicine; FAMILY PHYSICIAN Physician Assistant Medical
DX: J45.51 Severe persistent asthma with (acute) exacerbation (principal); I34.0 Nonrheumatic mitral (valve) insufficiency; D72.10 Eosinophilia, unspecified; M41.20 Other idiopathic scoliosis, site unspecified; R09.02 Hypoxemia; R06.89 Other abnormalities of breathing; K58.9 Irritable bowel syndrome, unspecified; K21.9 Gastro-esophageal reflux disease without esophagitis; R68.89 Other general symptoms and signs; R73.9 Hyperglycemia, unspecified; Z98.1 Arthrodesis status; Z88.0 Allergy status to penicillin; Z88.2 Allergy status to sulfonamides; Z86.010 Personal history of colon polyps
CPT/HCPCS: 71046; 80048; 80053; 85025; 86803; 87811; 94640; 96374; 99285

== ENCOUNTER → 2023-09-29 08:31 | Outpatient (REF) | payer BC, SELFPAY | LOC: RCS 08:31 | PROVIDERS: ATTENDING PHYSICIAN Specialist; FAMILY PHYSICIAN Physician Assistant Medical | DX: M25.562 Pain in left knee (principal); S83.242A Other tear of medial meniscus, current injury, left knee, initial encounter; Z01.818 Encounter for other preprocedural examination | CPT/HCPCS: 93005 ==

== ENCOUNTER → 2023-10-27 06:23 | Day surgery (SDC) | payer BC, SELFPAY | LOC: GI 06:23 | PROVIDERS: ATTENDING PHYSICIAN Internal Medicine; FAMILY PHYSICIAN Physician Assistant Medical | DX: Z12.11 Encounter for screening for malignant neoplasm of colon (principal); K64.8 Other hemorrhoids; K57.30 Diverticulosis of large intestine without perforation or abscess without bleeding; K64.4 Residual hemorrhoidal skin tags; D12.2 Benign neoplasm of ascending colon; Z86.010 Personal history of colon polyps | CPT/HCPCS: 45380; 88305 ==

== ENCOUNTER → 2023-12-13 10:20 | Outpatient (REF) | payer BC, SELFPAY | LOC: RAD 10:20 | PROVIDERS: ATTENDING PHYSICIAN Physician Assistant Medical | DX: Z00.00 Encounter for general adult medical examination without abnormal findings (principal); M85.80 Other specified disorders of bone density and structure, unspecified site | CPT/HCPCS: 77080 ==

== ENCOUNTER → 2024-06-20 12:02 | Outpatient (REF) | payer BC, SELFPAY | LOC: WDC 12:02 | PROVIDERS: ATTENDING PHYSICIAN Physician Assistant Medical | DX: Z12.31 Encounter for screening mammogram for malignant neoplasm of breast (principal) | CPT/HCPCS: 77063; 77067 ==